=== PATIENT | female | born 1970 | race Caucasian/White ===

== ENCOUNTER → 2017-11-22 | Outpatient (CLI) | payer BC, OTHER ==
--- NOTE | 2017-11-22 09:06 | WOMENS IMAGING REPORT ---
EXAM DESCRIPTION: 3D SCREENING MAMMO BILAT COMPLETED DATE/TIME: 11/22/2017 7:33 am REASON FOR STUDY: SCREENING MAMMO Z12.31 ENCNTR SCREEN MAMMOGRAM FOR MALIGNANT NEOPLASM OF JACQUI COMPARISON: 2015 TECHNIQUE: Standard craniocaudal and mediolateral oblique views of each breast recorded using digita l acquisition and breast tomosynthesis. LIMITATIONS: None. FINDINGS: Findings present which are benign by mammographic criteria. No suspicious masses, calcifi cations or architectural distortion. Pertinent benign findings: Stable mass right breast Read with the assistance of CAD. .[facility] - R2 Cenova Version 1.3 .[facility] - R2 Cenova Version 1.3 .[facility] - R2 Cenova Version 2.4 .[facility] - R2 Cenova Version 2.4 .[facility] - R2 [employer]ater[employer]tering Supervisor Version 9.2 Benign mammographic findings may include one or more of the following: Smooth masses, popcorn/rim/co arse calcifications, asymmetries, post-procedure changes, and lesions with long-standing stability. IMPRESSION: BENIGN MAMMOGRAPHIC FINDINGS. BIRADS 2 BREAST DENSITY: b. There are scattered areas of fibroglandular density. BIRAD: 2 BENIGN FINDING(S) RECOMMENDATION: RECOMMENDATION: ROUTINE SCREENING COMMENT: The patient has been notified of the results by letter per SA requirements. Additional no tification policies are in place for contacting patient with suspicious or incomplete findings. Quality ID #[id number]: The [employer] recommends an annual screening mammogram for women aged 40 years or over. This facility utilizes a reminder system to ensure that all patients receive reminder letters, and/or direct phone calls for appointments. This includes reminders for routine scr eening mammograms, diagnostic mammograms, or other Breast Imaging Interventions when appropriate. Th is patient will be placed in the appropriate reminder system. The [employer] (ACR) has developed recommendations for screening MRI of the breast s in certain patient populations, to be used in conjunction with mammography. Breast MRI surveillanc e may be appropriate for women with more than 20% lifetime risk of developing breast cancer as deter mined by genetic testing, significant family history of the disease, or history of mantle radiation f or Hodgkins Disease. ACR Practice Guidelines 2008. DBT Technology DBT is a type of tomographic mammography. With conventional mammography, overlapping breast tissue ma y make lesions difficult to detect, even with good compression. DBT uses an x-ray tube that rotates a round the breast, taking images at different angles. These images are then combined to create thin sl ices of the breast that the radiologist can view as a 3D reconstruction. The Hologic unit can perform full-field digital mammograms (2D imaging); or DBT (3D imaging); or both, in a combination mode that quickly performs both the mammogram and the tomosynthesis scan while the breast is still compressed. PQRS 6045F: Fluoroscopic imaging is not utilized for breast tomosynthesis. TECHNICAL DOCUMENTATION: FINDING NUMBER: (1) ASSESSMENT: (1) JOB ID: [id number] [employer]- All Rights Reserved
== END ==
LOC: WI 07:21
PROVIDERS: ATTEND Physician Assistant
DX: Z12.31 Encounter for screening mammogram for malignant neoplasm of breast (principal)
CPT/HCPCS: 77063; 77067

== ENCOUNTER 2018-04-15 20:35 | Emergency (ER) | payer OTHER ==
[2018-04-15 20:46] VITALS: BP 108/74
[2018-04-15] MEDS ORDERED: DIAZEPAM 5 MG TABLET PO ONE (21:01)
[2018-04-15] MEDS ORDERED: KETOROLAC TROMETHAMINE 60 MG/2 ML SDV IM ONE (21:01)
--- NOTE | 2018-04-15 21:01 | ER Document Report ---
ED Neck/Back Problem - General Mode of Arrival: Ambulatory Information source: Patient TRAVEL OUTSIDE OF THE [place] IN LAST 30 DAYS: No - General Chief Complaint: Back Pain Stated Complaint: BACK PAIN Time Seen by Provider: 04/15/18 21:00 Notes: 47-year-old female presenting today with complaints of back pain. Patient states she works 14 hour days and has been on her feet for quite a bit the last several days. Patient denies any trauma or injury to the area. Patient denies any radicular pain. (HUBERT SADLER) - Related Data Allergies/Adverse Reactions: Sulfa (Sulfonamide Antibiotics) Allergy (Verified 04/15/18 20:37) Past Medical History - General Information source: Patient - Social History Smoking Status: Unknown if Ever Smoked Frequency of alcohol use: None Drug Abuse: None Lives with: Family Family History: Reviewed & Not Pertinent - Medical History Medical History: Negative Surgical Hx: Negative Review of Systems - Review of Systems Constitutional: No symptoms reported EENT: No symptoms reported Cardiovascular: No symptoms reported Respiratory: No symptoms reported Gastrointestinal: No symptoms reported Genitourinary: No symptoms reported Female Genitourinary: No symptoms reported Musculoskeletal: See HPI, Back pain Skin: No symptoms reported Hematologic/Lymphatic: No symptoms reported Neurological/Psychological: denies: Numbness, Tingling -: Yes All other systems reviewed and negative Physical Exam - Vital signs Vitals: Temp Pulse Resp BP Pulse Ox 98.2 F 79 16 108/74 100 04/15/18 20:44 04/15/18 20:44 04/15/18 20:44 04/15/18 20:44 04/15/18 20:44 - Notes Notes: Physical Exam: General: Alert, appears well. HEENT: Normocephalic. Atraumatic. PERRL. Extraocular movements intact. Oropharynx clear. Neck: Supple. Non-tender. Respiratory: No respiratory distress. Clear and equal breath sounds bilaterally. Cardiovascular: Regular rate and rhythm. Abdominal: Normal Inspection. Non-tender. No distension. Normal Bowel Sounds. Back: Non-tender. No deformity or step off. Extremities: Moves all four extremities. Upper extremities: Normal inspection. Normal ROM. Lower extremities: Normal inspection. No edema. Normal ROM. Neurological: Normal cognition. AAOx4. Normal speech. Psychological: Normal affect. Normal Mood. Skin: Warm. Dry. Normal color. (HUBERT SADLER) Course - Re-evaluation Re-evalutation: 04/15/18 21:59 Patient well-appearing in no acute distress. Urine shows no signs of infection. She has back pain with no step-offs and no tenderness to palpation. Her pain is worse with movement better with rest suggestive of muscular skeletal strain. Provide anti-inflammatories and discussed not lifting more than 25 pounds for the next week. (SUSAN VILLALPANDO) - Vital Signs Vital signs: Temp Pulse Resp BP Pulse Ox 98.2 F 79 16 108/74 100 04/15/18 20:44 04/15/18 20:44 04/15/18 20:44 04/15/18 20:44 04/15/18 20:44 - Laboratory Laboratory results interpreted by me: 04/15/18 20:55 Urine Blood SMALL H Discharge - Discharge Clinical Impression: Strain, back Qualifiers: Encounter type: initial encounter Qualified Code(s): S39.012A - Strain of muscle, fascia and tendon of lower back, initial encounter Disposition: HOME, SELF-CARE Instructions: Upper Back Strain ([facility]) Prescriptions: Diazepam [Valium 5 mg Tablet] 5 mg PO ASDIR PRN #15 tablet PRN Reason: Naproxen 500 mg PO BID PRN #20 tablet PRN Reason: Forms: Return to Work Referrals: ELAINE MARS PA [NO LOCAL MD] - Follow up as needed Scribe Attestation: 04/18/18 19:08 I personally performed the services described documentation, reviewed and edited the documentation which was dictated to describe my presence, and it accurately records my words and actions. (SUSAN VILLALPANDO) Scribe Documentation - Scribe Written by Scribe:: Estrellita Carreon, 04/15/2018 [id number] acting as scribe for :: Chay
[2018-04-15 21:22] LABS: APPEARANCE,URINE CLEAR; BILIRUBIN,URINE NEGATIVE (NEGATIVE); COLOR,URINE STRAW; GLUCOSE, URINE NEGATIVE (NEGATIVE); KETONES,URINE NEGATIVE (NEGATIVE); LEUKOCYTE ESTERASE,URINE NEGATIVE (NEGATIVE); NITRITE,URINE NEGATIVE (NEGATIVE); PROTEIN,URINE NEGATIVE (NEGATIVE); URINE SPECIFIC GRAVITY 1.002; UROBILINOGEN,URINE NEGATIVE mg/dL (<2.0)
== END 2018-04-15 22:10 | disposition home or self-care (01) ==
LOC: ER 20:35
DX: S39.012A Strain of muscle, fascia and tendon of lower back, initial encounter (principal); M54.9 Dorsalgia, unspecified; X50.3XXA Overexertion from repetitive movements, initial encounter
CPT/HCPCS: 99283; 96372; 81025; 81001; J1885

== ENCOUNTER 2018-05-27 22:11 | Emergency (ER) | payer OTHER ==
--- NOTE | 2018-05-28 00:11 | RADIOLOGY REPORT (SQ) ---
EXAM DESCRIPTION: XR SHOULDER 2 OR MORE VIEWS COMPLETED DATE/TME: 05/27/2018 23:40 CLINICAL HISTORY: 47 years, Female, pain COMPARISON: None. FINDINGS: 3 views of the right shoulder. No acute fracture or dislocation. Osteoarthritic change right acromioclavicular joint. No acute abnormalities of the right hemithorax. IMPRESSION: No acute fracture or dislocation. 2010 [employer]- All Rights Reserved
[2018-05-28] MEDS ORDERED: KETOROLAC TROMETHAMINE 60 MG/2 ML SDV IM ONE (01:03)
[2018-05-28] MEDS ORDERED: ACETAMINOPHEN 325 MG TABLET PO ONE (01:04)
[2018-05-28] MEDS ORDERED: LIDOCAINE 5% (700 MG) TRANSDERMAL ADH..PATCH TP ONE (01:04)
--- NOTE | 2018-05-28 01:06 | ER Document Report ---
ED General - General Chief Complaint: Shoulder Pain Stated Complaint: R SHOULDER PAIN Time Seen by Provider: 05/27/18 23:40 Notes: Patient is a 47-year-old female without chronic medical problems who presents with 12 hours of right shoulder pain. The patient states that she woke up feeling some degree of soreness and throbbing to her right shoulder. She states that she took ibuprofen and the pain went away recurred in the mid afternoon. She states that since that time she has not retried taking any additional medications. She describes the pain in shoulder as being a throbbing , dull, constant pain worsened by any movement of the shoulder right upper extremity. She denies any weakness or numbness. Denies any known injury to the area. No history of similar symptoms in the past. She has not seen her general doctor regarding today's concerns. She denies any associated fever or constitutional symptoms. No rashes or lesions. TRAVEL OUTSIDE OF THE [place] IN LAST 30 DAYS: No - Related Data Allergies/Adverse Reactions: shrimp Allergy (Verified 05/27/18 22:16) Sulfa (Sulfonamide Antibiotics) Allergy (Verified 04/15/18 20:37) Past Medical History - General Information source: Patient - Social History Smoking Status: Never Smoker Frequency of alcohol use: None Drug Abuse: None Lives with: Spouse/Significant other Family History: Reviewed & Not Pertinent Patient has suicidal ideation: No Patient has homicidal ideation: No Renal/ Medical History: Denies: Hx Peritoneal Dialysis Review of Systems - Review of Systems Notes: Constitutional: Negative for fever. HENT: Negative for sore throat. Eyes: Negative for visual changes. Cardiovascular: Negative for chest pain. Respiratory: Negative for shortness of breath. Gastrointestinal: Negative for abdominal pain, vomiting or diarrhea. Genitourinary: Negative for dysuria. Musculoskeletal: Positive for right shoulder pain Skin: Negative for rash. Neurological: Negative for headaches, weakness or numbness. 10 point ROS negative except as marked above and in HPI. Physical Exam - Vital signs Vitals: Temp Pulse BP Pulse Ox 98.8 F 101 H 124/70 100 05/27/18 22:39 05/27/18 22:39 05/27/18 22:39 05/27/18 22:39 Interpretation: Tachycardic - Resolved at the time of my assessment Notes: PHYSICAL EXAMINATION: GENERAL: Well-appearing, well-nourished and in no acute distress. HEAD: Atraumatic, normocephalic. EYES: Pupils equal round and reactive to light, extraocular movements intact, sclera anicteric, conjunctiva are normal. ENT: nares patent, oropharynx clear without exudates. Moist mucous membranes. NECK: Normal range of motion, supple without lymphadenopathy LUNGS: Breath sounds clear to auscultation bilaterally and equal. No wheezes rales or rhonchi. HEART: Regular rate and rhythm without murmurs ABDOMEN: Soft, nontender, normoactive bowel sounds. No guarding, no rebound. No masses appreciated. EXTREMITIES: Patient declines range of motion testing with the right shoulder due to pain, no pitting or edema. No cyanosis. No swelling or induration of the right shoulder joint. NEUROLOGICAL: No focal neurological deficits. Moves all extremities spontaneously and on command. RMU motor and sensory distribution is intact bilaterally. PSYCH: Normal mood, normal affect. SKIN: Warm, Dry, normal turgor, no rashes or lesions noted. Course - Re-evaluation Re-evalutation: 05/28/18 01:04 No evidence of a septic joint, gout flare, dislocation, or fracture on exam and imaging. Vitals wnl. RMU motor and sensory distribution is intact. Pain is reproducible on palpation of the right trapezius, right deltoid and right sternocleidal mastoid muscles. There is no visible induration or swelling of the joint or of the distal extremity to suggest a DVT. At this time, I do not see an indication for labs or further imaging. At this time will discharge with return precautions and follow-up recommendations. Verbal discharge instructions given a the bedside and opportunity for questions given. Medication warnings reviewed. Patient is in agreement with this plan and has verbalized understanding of return precautions and the need for primary care follow-up in the next 24-72 hours. - Vital Signs Vital signs: Temp Pulse Resp BP Pulse Ox 97.9 F 100 20 100/76 97 05/28/18 01:21 05/28/18 01:21 05/28/18 01:21 05/28/18 01:21 05/28/18 01:21 - Diagnostic Test Radiology reviewed: Image reviewed, Reports reviewed Radiology results interpreted by me: 05/28/18 01:05 Right shoulder x-ray: No acute fracture or dislocation Discharge - Discharge Clinical Impression: Right shoulder pain Qualifiers: Chronicity: acute Qualified Code(s): M25.511 - Pain in right shoulder Condition: Good Disposition: HOME, SELF-CARE Additional Instructions: Your x-ray does not show any acute fracture today. You likely have a ligamentous strain. For your pain: Take ibuprofen 600 mg and acetaminophen 1000 mg every 6 hours together as needed for pain. Continue to apply ice to the area is much your able. You may take the Flexeril that has been prescribed at night as needed for muscle spasming and to help you sleep. Please follow-up with your primary care physician if you do not have improving your symptoms in the next 1-2 weeks. Please return immediately if you develop weakness, numbness , spreading redness from the area, fever greater than 100.4F, or any other symptoms that are concerning to you. Prescriptions: Cyclobenzaprine HCl [Flexeril 10 mg Tablet] 10 mg PO QHS PRN #15 tablet PRN Reason: Forms: Return to Work Referrals: DARRIUS LICONA MD [Primary Care Provider] - Follow up as needed
[2018-05-28 01:37] VITALS: BP 100/76
== END 2018-05-28 01:35 | disposition home or self-care (01) ==
LOC: ER 22:11
DX: M25.511 Pain in right shoulder (principal)
CPT/HCPCS: 99283; 96372; 73030; J1885